=== PATIENT | male | born 1970 | race Caucasian/White ===

== ENCOUNTER 2016-10-31 09:14 | Emergency (ER) | payer BC ==
[2016-10-31 09:58] VITALS: BP 140/79
--- NOTE | 2016-10-31 11:00 | UC ---
Complaint Male HPI - HPI Summary HPI Summary: 46 yo female has felt like the tip of his penis is numb x 1 day no lesions no dysuria no new sexual partner no new soaps or detergents denies abd or back pain splits [place] between [place] traveling to [place] today - History of Current Complaint Chief Complaint: UCGU Stated Complaint: POSSIBLE BLADDER INFECTION Time Seen by Provider: 10/31/16 10:20 Hx Obtained From: Patient Onset/Duration: Sudden Onset, Lasting Hours Timing: Constant Severity Initially: Mild Severity Currently: Mild Pain Intensity: 0 Pain Scale Used: 0-10 Numeric Location: Penis Aggravating Factor(s): Nothing Alleviating Factor(s): Nothing Associated Signs And Symptoms: Positive: Negative - Allergies/Home Medications Allergies/Adverse Reactions: Allergies Allergy/AdvReac Type Severity Reaction Status Date / Time No Known Allergies Allergy Verified 04/23/15 17:12 PMH/Surg Hx/FS Hx/Imm Hx Previously Healthy: Yes Endocrine History Of: Denies: Diabetes, Thyroid Disease Cardiovascular History Of: Denies: Cardiac Disorders, Hypertension Respiratory History Of: Denies: COPD, Asthma GI/ History Of: Denies: Ulcer - Surgical History Surgical History: None - Family History Known Family History: Positive: Hypertension - Social History Alcohol Use: Occasionally Substance Use Type: None Smoking Status (MU): Never Smoked Tobacco - Immunization History Most Recent Influenza Vaccination: Not the Season Review of Systems Constitutional: Negative Skin: Negative Eyes: Negative ENT: Negative Respiratory: Negative Cardiovascular: Negative Gastrointestinal: Negative Genitourinary: Negative Motor: Negative Neurovascular: Negative Musculoskeletal: Negative Neurological: Negative Psychological: Negative All Other Systems Reviewed And Are Negative: Yes Physical Exam Triage Information Reviewed: Yes Appearance: Well-Appearing, No Pain Distress, Well-Nourished Vital Signs: Initial Vital Signs Temp 97.5 F 10/31/16 09:50 Pulse 76 10/31/16 09:50 Resp 16 10/31/16 09:50 BP 140/79 10/31/16 09:50 Pulse Ox 100 10/31/16 09:50 Vital Signs Reviewed: Yes Eyes: Positive: Conjunctiva Clear ENT: Positive: Hearing grossly normal. Negative: Nasal drainage, Tonsillar exudate, Trismus, Muffled/hoarse voice Neck: Positive: Supple, Nontender, No Lymphadenopathy Respiratory: Positive: Lungs clear, Normal breath sounds, No respiratory distress, No accessory muscle use Cardiovascular: Positive: RRR, No Murmur Abdomen Description: Positive: Nontender, No Organomegaly, Soft, Other: - circumcised/no lesions/testicles descending bilat and nontender/no hernia. Negative: CVA Tenderness (R), CVA Tenderness (L) Bowel Sounds: Positive: Present Musculoskeletal: Positive: ROM Intact, No Edema Neurological: Positive: Alert, Muscle Tone Normal Psychological Exam: Normal Skin Exam: Normal Complaint Male Course/Dx - Course Course Of Treatment: states he will see urologist in [place] if not improved - Differential Dx/Diagnosis Provider Diagnoses: tip of penis feels numb-. normal exam Discharge - Discharge Plan Condition: Stable Disposition: HOME Referrals: Non Staff,Doctor [Primary Care Provider] - Additional Instructions: you exam was normal and your urine was clear get rechecked if you develop any sores on your penis I suggest you see a urologist back home if symptoms don't resolve in a few days test for chlamydia and gc is pending (my index of suspicion is very low)
== END 2016-10-31 11:11 | disposition home or self-care (01) ==
LOC: UCEAST 09:14
DX: R20.0 Anesthesia of skin (principal)
CPT/HCPCS: 81003; 87491; 87591; 99211; G0463